=== PATIENT | female | born 1960 | race African-American/Black ===

== ENCOUNTER → 2017-05-14 | Outpatient (CLI) | payer OTHER | LOC: RAD 10:17 | DX: M19.012 Primary osteoarthritis, left shoulder (principal); M47.892 Other spondylosis, cervical region; M43.6 Torticollis ==

== ENCOUNTER → 2017-05-26 | Outpatient (CLI) | payer OTHER | END | disposition home or self-care (01) | LOC: MRI 08:09 | DX: M25.512 Pain in left shoulder (principal) ==

== ENCOUNTER → 2017-10-16 | Outpatient (CLI) | payer OTHER ==
[~2017-10-16] MED LIST: ASPIR 8181 MG PO; CLONAZEPAM 0.50.5 M1 PO; CLONAZEPAM 1 MG1 M1 PO; GABAPENTIN 100100 MG PO; KLOR-CON 1010 MEQ PO; LISINOPRIL5 MG PO; METHADONE HCL5 MG PO; NAPROSYN500 MG PO; OMEPRAZOLE40 MG PO
== END ==
LOC: RAD 10-14 05:56
DX: Z12.31 Encounter for screening mammogram for malignant neoplasm of breast (principal)

== ENCOUNTER 2017-10-31 05:27 | Inpatient (IN) | payer OTHER ==
[2017-10-22 13:07] LABS: HEMATOCRIT 41.2 % (37.0-47.0); HEMOGLOBIN 13.3 gm/dL (12.0-15.0); MCH 28.2 pg (26.0-34.0); MCHC 32.2 g/dL (28.0-37.0); MCV 87.3 fL (80.0-100.0); RBC 4.72 mil/uL (4.20-5.00); RDW 13.2 % (10.5-14.5); WBC 5.2 thou/uL (4.0-11.0)
[2017-10-22 13:16] LABS: CALCIUM 9.2 mg/dL (8.5-10.1); CREATININE 0.8 mg/dL (0.6-1.0); POTASSIUM 4.4 mmol/L (3.5-5.1); URINE BILIRUBIN NEGATIVE (Negative); URINE BLOOD NEGATIVE (Negative); URINE CLARITY CLEAR; URINE COLOR YELLOW; URINE GLUCOSE-RANDOM* NEGATIVE (Negative); URINE KETONES NEGATIVE (Negative); URINE LEUKOCYTES-REFLEX NEGATIVE (Negative); URINE NITRITE-REFLEX NEGATIVE (Negative); URINE PROTEIN (DIPSTICK) NEGATIVE (Negative); URINE UROBILINOGEN 0.2 E.U./dl (0.2-1.0)
[2017-10-22 13:23] LABS: INR 1.1; PROTIME 10.8 Seconds (9.3-11.4)
[2017-10-31] VITALS (7 sets, daily range): BP systolic 98–136; BP diastolic 64–95
[~2017-10-31] VITALS: Ht 154.9 cm; Wt 77.6 kg
--- NOTE | ~2017-10-31 | O ---
[facility] [place] [address] [place] [address] OPERATIVE REPORT Name: SOILA RODRIGUEZ Room #: 409-P [facility] IN M.R.#: [id number] Admission: 10/31/17 Attend Phys: Darrel Caicedo Discharge: 11/01/17 Date of : 56 Report #: [id number] THIS REPORT FOR: //name// CC: Darrel Llamas DATE OF SERVICE: 10/31/2017 PREOPERATIVE DIAGNOSES: Left shoulder pain, osteoarthritis, biceps tendinopathy, possible rotator cuff tear. POSTOPERATIVE DIAGNOSES: Left shoulder osteoarthritis, biceps tendinopathy and partial thickness tear, intact rotator cuff. PROCEDURES PERFORMED: Left total shoulder arthroplasty with open biceps tenodesis. SURGEON: Darrel Colunga M.D. SCHEME TECHNICIAN: Ethel Huertas PA-C. ANESTHESIA: General with preoperative indwelling interscalene block catheter. FLUIDS: 750 mL crystalloids. ESTIMATED BLOOD LOSS: 50 mL. COMPLICATIONS: None. DESCRIPTION OF PROCEDURE: After proper identification of the patient and the operative site in the preoperative holding area, the operative site was signed by myself. Prophylactic antibiotics were given. The patient elected to receive an indwelling interscalene block catheter after reviewing the risks, benefits, alternatives and potential complications with anesthesia. After a satisfactory block, the patient was brought back to the operative suite. After induction of the satisfactory general anesthesia, the patient was positioned in the beach chair position with head of bed elevated to approximately 40 degrees. Anterior deltopectoral approach was planned. A Tenet spider limb positioning system was utilized throughout the entire procedure. Final skin draping was with Ioban. Anterior deltopectoral approach was created. Deltopectoral interval was identified with the cephalic vein retracted laterally. Subdeltoid adhesions were carefully released. Significant biceps tenosynovitis was noted. Partial thickness tearing of the long head of the biceps tendon was appreciated. It was released out of the groove and tenodesed to the undersurface of the pectoralis major tendon using #2 FiberWire. The remaining free end of the stump was utilized to open the remaining bicipital groove and the rotator interval. [facility] [address] [place] [address] OPERATIVE REPORT Name: SOILA RODRIGUEZ Room #: 409-P DIS IN M.R.#: [id number] Admission: 10/31/17 Attend Phys: Darrel Caicedo Discharge: 11/01/17 Date of : 56 Report #: [id number] Anterior circumflex vessels were identified, ligated and cauterized. A lesser tuberosity osteotomy was then performed and the inferior capsule was released off the humeral head. At this point, peripheral osteophytes around the humerus were then carefully removed and a humeral head osteotomy using a cutting guide at approximately 135 degrees was planned. The anterior rotator cuff was intact and there was no significant evidence of any cuff tearing on the bursal or articular surface. Humeral head osteotomy was performed. This measured 44 mm x 18 mm thick on the back table. Any remaining peripheral osteophytes were removed. Canal was prepared with hand reaming up to a size 8 stem, which matched the preoperative templating. Broach was utilized. The head was cut in approximately 25-30 degrees of retroversion, which matched the patient's nightmute version. Protection plate was applied. The shoulder was then again reduced and the anterior capsule was released off the subscapularis and an anterior Bankart retractor was placed. Remaining capsule, labrum and biceps tendon stump were carefully removed in their entirety. There was complete loss of articular surface on the glenoid. No significant wear was noted. A 44 mm glenoid was chosen. This appeared slightly larger than it was noted preoperatively on the templating. Guide pin was centralized, positioned satisfactorily. Face of the glenoid was then reamed. Any peripheral soft tissue was carefully removed and central drill peg was created. Bone graft was saved for this for the pinned portion of the prosthesis. Next, the multi-pin guide was carefully inserted. Peripheral pegs were then drilled. Derotation pegs were utilized. This area was irrigated. Trial implant was placed. It was satisfactorily positioned and was stable and fully seated. This was removed. This area was thoroughly irrigated with normal saline. FloSeal was utilized while a bag of cement was prepared on the back table and the 44 mm standard DePuy glenoid was prepared. The FloSeal was irrigated out. All holes were contained. Peripheral pegs were injected with a teres syringe with cement and the bone-grafted glenoid implant was carefully impacted into position and held firmly in place until the cement had fully cured. It was fully seated and stable. Next, this was protected with a plastic dura and a 44 x 18 humeral head with a size 8 stem was trialed. This provided excellent recreation of the humeral anatomy proximally. Approximately 50% translation was noted posteriorly when it was reduced. Trial implants were removed. The Global Unite brosteotome was utilized. Anterior drill holes were placed within the bicipital groove and anterior humeral cortex. Four #2 FiberWires were passed. A size 8 Global Unite stem with 135-degree proximal body was assembled, tightened and impacted into position. A 44 x 18 eccentric head was then carefully impacted into position and appropriate eccentricity was marked. The shoulder was reduced. Subscapularis was repaired with modified Mario-Lyle technique with four #2 FiberWires. Then the lateral portion of the rotator interval was closed with #2 FiberWire. This area was irrigated with normal saline. One gram of vancomycin powder was utilized, half of it deep and half of it subcutaneous. Deltopectoral [facility] [address] [place] [address] OPERATIVE REPORT Name: SOILA RODRIGUEZ Room #: 409-P DIS IN M.R.#: [id number] Admission: 10/31/17 Attend Phys: Darrel Caicedo Discharge: 11/01/17 Date of : 56 Report #: [id number] interval was closed with #1 Vicryl, 2-0 Vicryl for the subcutaneous tissues and final skin closure was with a running 4-0 Monocryl. Dermabond was applied. Sterile dressing was applied. The patient was placed in a sling and abduction pillow for 4 weeks postoperatively. Qualified occupational therapist assistants was utilized throughout the entire procedure to aid in patient limb positioning, visualization and retraction of the soft tissues, instrument passage, closure and sling application. <ELECTRONICALLY SIGNED> By: Darrel Colunga MD 11/05/17 0742 1012 1052 Darrel Colunga MD /nt
--- NOTE | ~2017-10-31 | H ---
[facility] [place] [address] [place] [address] HISTORY AND PHYSICAL Name: SOILA RODRIGUEZ Room #: 409-P [facility] IN M.R.#: [id number] Admission: 10/31/17 Attend Phys: Darrel Caicedo Discharge: 11/01/17 Date of : 56 Report #: [id number] THIS REPORT FOR: //name// CC: Darrel Galeanaa Llmaas DATE OF SERVICE: 10/31/2017 CHIEF COMPLAINT: Left shoulder pain. HISTORY OF PRESENT ILLNESS: The patient was last seen in our office on 08/28/2017 complaining of left shoulder pain that initially began 10 years ago when she fell out of a window. The patient localizes the pain to the anterior lateral and superior shoulder that occasionally radiates up into the neck and into the posterior shoulder. She has had a previous injection of cortisone with no relief. MEDICATIONS: Please see medical record for current but home medications include Naprosyn, Metazol, enalapril, potassium citrate extended release tablets, lisinopril tablet, methadone Hcl tablet. ALLERGIES: No known drug allergies. PAST MEDICAL HISTORY: Significant for arthritis, hypertension, flu vaccination 12-24 months ago. PAST SURGICAL HISTORY: Significant for cholecystectomy, hip fracture surgery, low back surgery. REVIEW OF SYSTEMS: GENERAL: The patient denies any significant weight loss, fevers, malaise. EYES: The patient reports vision loss in both eyes. ENT: Positive for difficulty swallowing. CARDIOVASCULAR: Positive for racing/skipping heartbeats. RESPIRATORY: The patient denies any shortness of air, difficulty breathing, chest pain. GASTROINTESTINAL: Positive for constipation. GENITOURINARY: Negative for any changes in bladder habits, frequency, nocturia. MUSCULOSKELETAL: Positive for joint swelling, pain, back pain, arthritis, muscle weakness, muscle aches, loss of strength. FAMILY HISTORY: The patient denies any pertinent past family history. SOCIAL HISTORY: The patient lives with her significant other. She is right-handed and ambulates without assistance. Tobacco use: The patient denies any smoking, the patient is on chronic methadone use and does report past [facility] [address] [place] [address] HISTORY AND PHYSICAL Name: SOILA RODRIGUEZ Room #: 409-P [facility] IN M.R.#: [id number] Admission: 10/31/17 Attend Phys: Darrel PughFreddy Caicedo Discharge: 11/01/17 Date of : 56 Report #: [id number] history of IV drug use. PHYSICAL EXAMINATION: VITAL SIGNS: Height 61 inches, weight 160 pounds, BMI 30. GENERAL: The patient is a well-developed, well-nourished female in no acute distress. HEENT: Pupils are equal, round and reactive to light. Extraocular movements grossly intact. NECK: Supple, without lymphadenopathy, no bruit. CHEST: Clear to auscultation bilaterally. HEART: Regular rate and rhythm without murmur. ABDOMEN: Soft and nontender. SKIN: Nontender, dry and intact. EXTREMITIES: Neurovascularly intact. Active flexion is measured to 80 degrees, passive to 90 degrees, passive external rotation 15 degrees, passive internal rotation to the iliac crest. Tenderness to palpation of the AC joint, anterolateral shoulder, posterior shoulder, rhomboids and upper trapezius. No tenderness to palpation of the sternoclavicular joint, clavicle or acromion. The patient complains of pain with cross chest adduction, positive Neer's test, positive Walton test. Strength test of the rotator cuff: Supraspinatus 4+/5, external rotation 4+/5, internal rotation 5-/5, deltoid 5-/5. Pain with strength testing is noted. X-rays performed in the office include 3 views of the left shoulder that show a type 2 acromion with no degenerative changes noted at the AC joint. The glenohumeral joint shows near complete loss of glenohumeral joint space with osteophyte formation noted. Glenohumeral joint remained well reduced. IMAGING STUDIES: MRI of the left shoulder performed at [facility] reveals advanced glenohumeral arthritis and moderate rotator cuff damage with full thickness tearing of the supraspinatus. ASSESSMENT: Left shoulder pain, osteoarthritis, small rotator cuff tear of the supraspinatus. PLAN: We reviewed continued nonoperative versus operative treatment options. We discussed performing a left total shoulder arthroscopy with biceps tenodesis versus reverse total shoulder arthroplasty depending on the integrity of the rotator cuff. The risk, benefits, alternatives to treatment were reviewed. This short-term hospitalization was reviewed. We have discussed anticoagulation, DVT prophylaxis pre and postoperatively. We discussed the potential for time in a sling, the need for physical therapy. Preoperatively, the patient will use benzoyl peroxide soap for 7 days preop. Pain management was discussed and pain medications will be given on the day of surgery. The anesthesiologist will discuss the utilization of a nerve block. She may elect to have this performed postoperative pain. I presented the [facility] [address] [place] [address] HISTORY AND PHYSICAL Name: SOILA RODRIGUEZ Room #: 409-P DIS IN M.R.#: [id number] Admission: 10/31/17 Attend Phys: Darrel Caicedo Discharge: 11/01/17 Date of : 56 Report #: [id number] Academy of Orthopedic surgeon's website for further information and videos pertaining to the above mentioned procedure can be reviewed. Arthroplasty handout was also provided to the patient. We demonstrated the surgery using the shoulder model. We discussed the need for prophylactic antibiotic treatment for invasive dental procedures postoperatively as well as the need for serial radiographic monitoring every 1-2 years postoperatively. The patient has been cleared for surgery and we will plan on proceeding with above mentioned procedure. Questions were encouraged, all were answered. <ELECTRONICALLY SIGNED> By: TYLER Mathews 11/05/17 1108 1027 1118 TYLER Mathews /nt
--- NOTE | ~2017-10-31 | EKG ---
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 : 1960 Requested By: Darrel Colunga Order Number: [id number] MD: Trevon Reyes Measurements Intervals [place] Rate: 88 P: 28 MN: 145 QRS: -7 QRSD: 66 T: 188 QT: 326 QTc: 395 Interpretive Statements Sinus rhythm LVH with secondary repolarization abnormality Compared to ECG 10/29/2005 01:47:23 Left ventricular hypertrophy now present Early repolarization now present Electronically Signed On 10-22-2017 16:20:06 SCREW MACHINE HAND by Trevon Reyes [email or web address] <ELECTRONICALLY SIGNED> By: Trevon Reyes MD 10/22/17 1620 1301 130 Trevon Reyes MD /THERESA
[2017-11-01] VITALS: BP 120/80
[2017-11-01 04:12] VITALS: BP 116/76
[2017-11-01 04:41] LABS: HEMATOCRIT 29.7 % (37.0-47.0); HEMOGLOBIN 9.8 gm/dL (12.0-15.0)
[2017-11-01 07:28] VITALS: BP 152/89
[2017-11-01 12:23] VITALS: BP 152/89
== END 2017-11-01 15:00 | disposition home or self-care (01) | DRG 483 ==
LOC: TBA 05:27 → 4N 05:27 → PRE 05:30 → 4N 13:38
PROVIDERS: Orthopaedic Surgery Sports Medicine; Physician Assistant Surgical
PROC: 0RRK0JZ Replacement of Left Shoulder Joint with Synthetic Substitute, Open Approach (ICD-10-PCS; principal; 2017-10-31)
PROC: 0LS40ZZ Reposition Left Upper Arm Tendon, Open Approach (ICD-10-PCS; principal; 2017-10-31)
DX: M19.012 Primary osteoarthritis, left shoulder (principal); M75.22 Bicipital tendinitis, left shoulder; I10 Essential (primary) hypertension; Z90.49 Acquired absence of other specified parts of digestive tract; M75.102 Unspecified rotator cuff tear or rupture of left shoulder, not specified as traumatic; Z79.899 Other long term (current) drug therapy
CPT/HCPCS: 10790; 50010; 50101; 50172; 50386; 50404; 50697; 50733; 50935; 51751; 51771; 52138; 53000; 53078; 54118; 55435; 56521; 56524; 56525; 56526; 56530; 57095; 62110; 62900; 64041; 64043; 70005

== ENCOUNTER → 2018-12-08 | Outpatient (CLI) | payer OTHER | LOC: RAD 01:59 | DX: Z12.31 Encounter for screening mammogram for malignant neoplasm of breast (principal) ==

== ENCOUNTER → 2019-12-08 | Outpatient (CLI) | payer OTHER | LOC: RAD 13:21 | DX: Z12.31 Encounter for screening mammogram for malignant neoplasm of breast (principal) ==

== ENCOUNTER → 2020-03-20 | Outpatient (CLI) | payer OTHER | LOC: RAD 11:33 | DX: M51.37 Other intervertebral disc degeneration, lumbosacral region (principal); M48.07 Spinal stenosis, lumbosacral region; M25.78 Osteophyte, vertebrae; M54.40 Lumbago with sciatica, unspecified side; G89.29 Other chronic pain ==

== ENCOUNTER 2020-04-04 07:18 | Emergency (ER) | payer OTHER ==
[~2020-04-04] VITALS: Ht 154.9 cm; Wt 66.2 kg
[2020-04-04 08:39] LABS: ANION GAP 4 mmol/L (7-16); BUN 18 mg/dL (7-18); CALCIUM 8.8 mg/dL (8.5-10.1); CHLORIDE 105 mmol/L (98-107); CO2 28 mmol/L (21-32); CREATININE 0.8 mg/dL (0.6-1.0); GLUCOSE 79 mg/dL (74-106); POTASSIUM 4.1 mmol/L (3.5-5.1); SODIUM 137 mmol/L (136-145)
[2020-04-04 08:49] LABS: ALBUMIN 3.2 g/dL (3.4-5.0); LIPASE 171 U/L (73-393); SGOT 45 U/L (15-37); SGPT 85 U/L (30-65); TOTAL BILIRUBIN 0.4 mg/dL (0.2-1.0); TOTAL PROTEIN 6.7 g/dL (6.4-8.2); TROPONIN-I <0.06 ng/mL (<0.06)
--- NOTE | 2020-04-04 08:50 | EKG ---
[facility] [place] [address] [place] [address] ELECTROCARDIOGRAM REPORT Name: SOILA RODRIGUEZ Room #: [facility].#: [id number] Admission: 04/04/20 Attend Phys: Discharge: Date of : 56 Report #: [id number] THIS REPORT FOR: cc: Thuy Llamas MD, Nora P. MD Lundgren, Craig H. 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[facility] : 1960 Requested By: Eduardo Huff Order Number: [id number] MD: Linden Garcia Measurements Intervals [place] Rate: 55 P: 65 UT: 171 QRS: 8 QRSD: 90 T: 37 QT: 434 QTc: 416 Interpretive Statements Sinus rhythm Nonspecific ST segment abnormality Compared to ECG 10/22/2017 13:01:41 ST segment abnormality is less pronounced Electronically Signed On 04-04-2020 8:49:09 CDT by Linden Garcia [email or web address] <ELECTRONICALLY SIGNED> By: Linden Garcia MD, [facility] 04/04/20 0849 [id number] 0757 Linden Garcia MD, [facility] /EPI
[2020-04-04] MEDS ORDERED: KLONOPIN0.5 MG PO (09:40)
[2020-04-04 10:00] LABS: HEMATOCRIT 36.9 % (37.0-47.0); HEMOGLOBIN 12.1 gm/dL (12.0-15.0); MCH 28.8 pg (26.0-34.0); MCHC 32.8 g/dL (28.0-37.0); MCV 87.8 fL (80.0-100.0); PLATELET COUNT 192 thou/uL (150-400); RDW 13.1 % (10.5-14.5); WBC 5.1 thou/uL (4.0-11.0)
[2020-04-04 10:12] LABS: URINE BILIRUBIN NEGATIVE (Negative); URINE BLOOD NEGATIVE (Negative); URINE CLARITY CLEAR; URINE COLOR YELLOW; URINE GLUCOSE-RANDOM* NEGATIVE (Negative); URINE KETONES NEGATIVE (Negative); URINE LEUKOCYTES-REFLEX NEGATIVE (Negative); URINE NITRITE-REFLEX NEGATIVE (Negative); URINE PROTEIN (DIPSTICK) NEGATIVE (Negative); URINE SPECIFIC GRAVITY >= 1.030 (1.005-1.035); URINE UROBILINOGEN 0.2 E.U./dl (0.2-1.0)
[2020-04-04 10:39] LABS: ANISOCYTOSIS 1+; ATYPICAL LYMPHS 2 %; MYELOCYTES 1 %; OVALOCYTES FEW
[2020-04-04 11:44] VITALS: BP 132/73
== END 2020-04-04 11:44 | disposition home or self-care (01) ==
LOC: ER 07:18
PROVIDERS: Emergency Medicine
DX: G89.29 Other chronic pain (principal); R10.12 Left upper quadrant pain; R10.32 Left lower quadrant pain; R11.0 Nausea; I10 Essential (primary) hypertension; K21.9 Gastro-esophageal reflux disease without esophagitis; Z79.899 Other long term (current) drug therapy; Z90.49 Acquired absence of other specified parts of digestive tract

== ENCOUNTER → 2020-04-13 | Outpatient (CLI) | payer OTHER ==
[~2020-04-13] MED LIST changes: +KLONOPIN0.5 MG PO
== END ==
LOC: MRI 12:30
PROVIDERS: ATTEND Family Medicine
DX: M47.817 Spondylosis without myelopathy or radiculopathy, lumbosacral region (principal); M43.17 Spondylolisthesis, lumbosacral region; M48.07 Spinal stenosis, lumbosacral region; M54.40 Lumbago with sciatica, unspecified side

== ENCOUNTER → 2020-04-25 | Outpatient (CLI) | payer OTHER ==
[~2020-04-25] VITALS: Ht 154.9 cm; Wt 63.5 kg
[~2020-04-25] MED LIST changes: +FLONASE 0.05%50 MCG NASAL
[2020-04-25 13:32] VITALS: BP 116/81
--- NOTE | 2020-04-25 13:50 | NUR ---
Pain Clinic Assessment: 1. History of Osteoarthritis: BACK History of Rheumatoid Arthritis: Not Applicable 2. Height: 5 ft. 1 in. 154.9 cm. Weight: 140.0 lb. oz. 63.504 kg. Patient's BMI: 26.5 3. Vital Signs: BP: 116/81 Pulse: 88 Resp: 16 Temp: 02 Sat: 100 ECG Mon: 4. Pain Intensity: 9 5. Fall Risk: Dizziness: N Needs help standing or walking: Y Fallen in the last 3 months: N Fall risk comments: 6. Patient on Blood Thinner: None 7. History of Hypertension: Y 8. Opioid Therapy greater than 6 weeks: N Opiate Contract Signed: 9. Risk Assessment Tool Provided: MODERATE RISK 03/26 10. Functional Assessment Tool: / 11. Recreational Drug Use: Past greater than 3 mos Drug Type: PRESCRIPTION DRUGS Tobacco Use: Never Smoker Tobacco Type: Amount or Packs/day: How Many Years: Alcohol Use: No Frequency: Quant:
--- NOTE | 2020-05-02 14:07 | HPC ---
[facility] [place] [address] [place] [address] PAIN MANAGEMENT CONSULTATION Name: SOILA RODRIGUEZ Room #: REG [facility] M..#: [id number] Admission: 04/25/20 Attend Phys: Elton Lane DO Discharge: Date of : 56 Report #: [id number] THIS REPORT FOR: cc: Thuy Llamas MD, Nora P. MD Johnson, James E. DO ~ DATE OF SERVICE: 04/25/2020 REFERRING PHYSICIAN: Elton Fraire DO CHIEF COMPLAINT: Low back pain, left lower extremity pain with paresthesias. HISTORY OF PRESENT ILLNESS: As you know, the patient is a very unfortunate 60-year-old female with longstanding history of low back pain, left lower extremity pain with paresthesias. The patient indicates that she has had an acute exacerbation of symptoms that appeared spontaneously on 01/07/2020. She indicates that this is the pain that she has had in the past. In fact, she reports that she was once treated at [facility] for over 3-4 years ago for similar findings. She underwent injections at that time, which reportedly provided no benefit. She was started on medication management, but did not follow up with their pain service. She sought evaluation through her primary care physician, Dr. Fraire after this acute exacerbation of symptoms that occurred on 01/07/2020. The patient denies injury or trauma that may have led to the development of symptoms. She was seen in consultation and was sent for imaging of the lumbar spine for further evaluation. MRI findings dated 04/13/2020 were such, the patient was referred to our clinic to discuss injection therapies. The patient indicates today her pain is continuous. She describes the pain as aching and throbbing. She places current pain score 9/10, daily average at 9/10, the worst pain has been is 10/10. The patient states that walking or any activity exacerbates symptoms. Elevating legs and pain pills tend to improve pain. She has been referred to our service to discuss interventional treatment options. PAST MEDICAL HISTORY: 1. Osteoarthritis. 2. Bilateral blindness. 3. Hypertension. PAST SURGICAL HISTORY: Back surgery in 1997, cholecystectomy in 1999, hip repair in 2001. SOCIAL HISTORY: The patient reports herself as a nonsmoker. Denies IV or illicit drug use. Denies any chronic alcohol use. She is not working, has not [address] [address] PAIN MANAGEMENT CONSULTATION Name: SOILA RODRIGUEZ Room #: REG [facility] Nicholson#: [id number] Admission: 04/25/20 Attend Phys: Elton Lane DO Discharge: Date of : 56 Report #: [id number] worked in an extended period of time. She is not receiving workmen's compensation nor is she trying to obtain disability benefits. She is not in litigation in regards to her pain. She is unaccompanied at today's visit. REVIEW OF SYSTEMS: Positive for eye disease, shortness of breath walking or lying flat, frequent and recurrent coughs, spitting up blood, asthma and wheezing, low back pain, left lower extremity pain with paresthesias. All other review of systems negative per 12-point review of systems other than those listed in history of present illness. Pain impact score 53 of 70 indicating severe interference of daily activities secondary to pain. ALLERGIES: No known drug allergies. CURRENT MEDICATIONS: Fluticasone 1 spray each nostril per day, potassium chloride 10 mEq p.o. every day, lisinopril 5 mg per day, aspirin 81 mg per day, omeprazole 40 mg per day, methadone 5 mg every 6 hours. IMAGING: MRI lumbar spine obtained on 04/13/2020 shows L1-L2 unremarkable. L2-L3 shows mild disk bulge and facet arthrosis, mild central canal stenosis and mild left neural foraminal stenosis. No right foraminal stenosis. L3-L4 shows marked disk space narrowing with slight disk bulge combining with, bilateral ligamentum flavum hypertrophy causing mild central canal stenosis and mild neural foraminal stenosis. At L4-L5 disk narrowing broad-based disk bulge. This combines with ligamentum flavum hypertrophy causes moderate central canal stenosis, bilateral lateral recess stenosis and right neural foraminal stenosis. L5-S1, marked disk space narrowing bilateral facet arthrosis, slight degenerative anterolisthesis of L5 and S1. No central canal stenosis, only mild foraminal stenosis. PQRS: The patient has known mild arthritic changes of the lumbar spine. No rheumatoid arthritis. She is placing pain intensity at 9/10. She is a fall risk, but has not had a fall in last 3 months. She is utilizing ambulatory devices for balance. She is not on blood thinners, but is treated for hypertension. She is not on chronic opioids and has severe risk of opioid addiction based on our assessment tool. Pain impact is 56/70, severe interference of daily activities secondary to pain. PHYSICAL EXAMINATION: VITAL SIGNS: Blood pressure 116/81, pulse 88, respiratory rate 16 and unlabored. The patient is 100% on room air. Height 5 feet 1 inch tall, weight 140 pounds, BMI calculated 26.5. GENERAL: Well-developed, well-nourished, well-hydrated 60-year-old female, appears older than her stated age. She is awake, alert and oriented x 3. Pain is rated today at 9/10. [facility] [place] [address] PAIN MANAGEMENT CONSULTATION Name: SOILA RODRIGUEZ Room #: REG Deborah MKelsy.#: [id number] Admission: 04/25/20 Attend Phys: Elton Lane DO Discharge: Date of : 56 Report #: [id number] HEENT: Normocephalic, atraumatic. The patient has near complete blindness. Extraocular muscles appear intact. Neck has full range of motion. No lymphadenopathy. RESPIRATORY: Clear to auscultation. No wheeze, rhonchi or rales. CARDIOVASCULAR: Regular. No appreciable gallop or rub. ABDOMEN: Soft, nontender with normoactive bowel sounds. EXTREMITIES: Show no clubbing, no cyanosis, and no edema. MUSCULOSKELETAL: The patient has tenderness to palpation over the paraspinal musculature of lower lumbar spine, right greater than left. Lumbar provocation testing is met with slight increase in pain mainly over the facet joints of the lumbar spine. This is noted with forward flexion and extension, not noted with rotation or lateral flexion. Seated straight leg raising negative. Supine straight leg raising negative. Rosalina's test is negative. Modified Gaenslen's positive for axial low back pain. Ankle clonus negative. Babinski is negative. Gait is antalgic, but according to the patient, it is normal for her: ASSESSMENT: 1. Chronic low back pain. 2. Failed lumbar spine surgery. 3. Possible lumbar radiculopathy. 4. Central canal stenosis of the lumbar spine. 5. Neural foraminal stenosis of the lumbar spine. 6. Facet arthropathy of the lumbar spine. 7. Chronic intractable pain. PLAN: 1. Based on today's physical exam and history the patient has provided, the description the patient uses in regards to pain, the likely source of symptoms appears to be the central canal stenosis noted on imaging. There is also a contribution of neural foraminal stenosis. We discussed how the MRI findings correlate to her current pain distribution. After this discussion of imaging and correlation to physical exam, we discussed the treatment options we have available. Following was discussed with the patient today. We discussed physical therapy, stretching exercises and core strengthening as a way to treat ongoing symptoms and to maintain lower extremity strength. We recommend this highly. We discussed suggestions of pain medications for pain control. These would include Neurontin, Lyrica, Cymbalta, nortriptyline and amitriptyline, given the findings on exam and the history that she has of opioid misuse and prescription drug addiction, we would not recommend any opioid medications in this patient's case. We discussed epidural injections for which the patient was referred to our service. We also discussed surgical options with the patient that may be necessary. After reviewing risks and benefits of all proposed treatment options, the patient chose to undergo lumbar epidural injection under fluoroscopic guidance. 2. The patient was advised of the risks and benefits of a lumbar epidural [address] [address] PAIN MANAGEMENT CONSULTATION Name: SOILA RODRIGUEZ Room #: REG TOSHA Nicholson#: [id number] Admission: 04/25/20 Attend Phys: Elton Lane DO Discharge: Date of : 56 Report #: [id number] injection. These risks include but are not necessarily limited to bleeding, bruising, infection, worsening pain, no relief of pain, also risk of temporary or permanent muscle weakness, temporary or permanent nerve damage, possible paralysis and . The patient states understood and wished to proceed. 3. No medication changes made at today's visit. The patient did request multiple times during our evaluation today for opioid pain medications. We have advised the patient given our assessment tool showing a severely high opioid addiction potential and the fact that she is currently on methadone for opioid addiction, she would not be a candidate to initiate medication management with our services. She will have to seek alternative treatment options to address ongoing pain as she is not a candidate for opioid medications or substances that can cause dysphoric effects. 4. We will see the patient back in followup visit on an as needed basis for possible next in the series of epidural injections. We are hopeful the patient will see good and prolonged benefit with today's procedure. 5. We wish to thank the referring physician, which appears to be Dr. Thuy Llamas though the patient reports that her primary care physician is Dr. Fraire for the opportunity to see the patient in consultation. We will keep you apprised of response to treatment as we address lumbar radiculopathy secondary to central canal and neural foraminal stenosis. Again, we wish to thank you for the opportunity to see the patient in consultation. PROCEDURE NOTE DESCRIPTION OF PROCEDURE: L4-L5 interlaminar epidural steroid injection under fluoroscopic guidance. This is the first procedure of the first series that the patient is undergoing. After obtaining written consent, the patient was taken back to the fluoroscopy suite, placed in a prone position with pillow under the abdomen to decrease lumbar lordosis. The skin overlying the lumbosacral area was then prepped and draped in aseptic fashion. The L4-L5 vertebral interspace was then identified by AP fluoroscopy. The skin and subcutaneous tissue overlying the target site of injection was anesthetized with 3 mL 1% lidocaine. A 20-gauge 3.5-inch Tuohy needle was then advanced under fluoroscopic guidance towards the epidural space using a left paramedian approach. The epidural space was identified using loss of resistance to air technique. After negative aspiration for heme or cerebrospinal fluid, a total of 1 mL of Omnipaque was injected. A lumbar epidurogram was confirmed using both AP and lateral fluoroscopy. After negative aspiration for heme or cerebrospinal fluid, 5 mL of a solution containing 2 mL 40 mg/mL, 80 mg total triamcinolone along with 3 mL of lidocaine 1% was injected in increments. Contrast spread was noted posterior epidural space. The needle was then retracted approximately half way and needle tract flushed with 1 mL of 1% lidocaine. Needle was then removed. There were [facility] [address] [place] [address] PAIN MANAGEMENT CONSULTATION Name: JENNIFERSOILA Room #: REG [facility] M.R.#: [id number] Admission: 04/25/20 Attend Phys: Elton Lane DO Discharge: Date of : 56 Report #: [id number] no apparent sensory or motor deficits in the lower extremity following the procedure. A sterile bandage was placed over the injection site. The heart rate, pulse, oximetry and blood pressure were continuously monitored after the procedure. There were no apparent complications. The patient tolerated the procedure well and was carefully escorted to the recovery room in stable condition. There were no apparent complications. After meeting discharge criteria, the patient was then discharged home. <ELECTRONICALLY SIGNED> By: Elton Lane DO 05/02/[address] DO /nt
== END ==
LOC: PAIN 06:57
PROVIDERS: ATTEND Anesthesiology Pain Medicine
DX: M54.5 Low back pain (principal); M48.061 Spinal stenosis, lumbar region without neurogenic claudication; G89.29 Other chronic pain; M19.90 Unspecified osteoarthritis, unspecified site; I10 Essential (primary) hypertension; Z79.899 Other long term (current) drug therapy; Z98.890 Other specified postprocedural states

== ENCOUNTER → 2020-05-25 | Outpatient (CLI) | payer OTHER | LOC: LAB 11:41 | PROVIDERS: ATTEND Student in an Organized Health Care Education/Training Program | DX: Z01.812 Encounter for preprocedural laboratory examination (principal); Z11.59 Encounter for screening for other viral diseases ==

== ENCOUNTER → 2020-05-29 | Outpatient (CLI) | payer OTHER | END | disposition home or self-care (01) | LOC: GI 06:47 | PROVIDERS: ATTEND Internal Medicine Gastroenterology | DX: Z12.11 Encounter for screening for malignant neoplasm of colon (principal); K64.8 Other hemorrhoids; Z86.010 Personal history of colon polyps; Z79.899 Other long term (current) drug therapy; Z88.8 Allergy status to other drugs, medicaments and biological substances; Z98.890 Other specified postprocedural states | CPT/HCPCS: 62110; 62900 ==

== ENCOUNTER → 2020-06-16 | Outpatient (CLI) | payer OTHER | LOC: RAD 07:58 | DX: M51.37 Other intervertebral disc degeneration, lumbosacral region (principal); M48.07 Spinal stenosis, lumbosacral region; M47.816 Spondylosis without myelopathy or radiculopathy, lumbar region; M43.17 Spondylolisthesis, lumbosacral region ==

== ENCOUNTER 2020-06-30 16:18 | Inpatient (IN) | payer OTHER ==
[~2020-06-30] VITALS: Ht 154.9 cm; Wt 66.7 kg
[2020-06-30 13:52] LABS: ABSOLUTE NEUTROPHILS 1.6 thou/uL (1.4-8.2); BASOPHILS 0.6 % (0.0-2.0); EOSINOPHILS 3.9 % (0.0-3.0); HEMATOCRIT 37.9 % (37.0-47.0); HEMOGLOBIN 12.2 gm/dL (12.0-15.0); LYMPHOCYTES 53.9 % (24.0-44.0); MCH 29.1 pg (26.0-34.0); MCHC 32.2 g/dL (28.0-37.0); MCV 90.5 fL (80.0-100.0); MONOCYTES 10.2 % (1.0-8.0); PLATELET COUNT 211 thou/uL (150-400); POLYS 31.4 % (36.0-66.0); RBC 4.18 mil/uL (4.20-5.00); RDW 14.6 % (10.5-14.5); WBC 5.2 thou/uL (4.0-11.0)
[2020-06-30 14:01] LABS: URINE BILIRUBIN NEGATIVE (Negative); URINE BLOOD NEGATIVE (Negative); URINE CLARITY CLEAR; URINE COLOR YELLOW; URINE GLUCOSE-RANDOM* NEGATIVE (Negative); URINE KETONES NEGATIVE (Negative); URINE LEUKOCYTES-REFLEX NEGATIVE (Negative); URINE NITRITE-REFLEX NEGATIVE (Negative); URINE PROTEIN (DIPSTICK) NEGATIVE (Negative); URINE SPECIFIC GRAVITY >= 1.030 (1.005-1.035); URINE UROBILINOGEN 0.2 E.U./dl (0.2-1.0)
[2020-06-30 14:06] LABS: ALBUMIN 3.2 g/dL (3.4-5.0); CALCIUM 8.6 mg/dL (8.5-10.1); CREATININE 0.8 mg/dL (0.6-1.0); MAGNESIUM 2.1 mg/dL (1.8-2.4); POTASSIUM 4.7 mmol/L (3.5-5.1); TOTAL BILIRUBIN 0.2 mg/dL (0.2-1.0); TOTAL PROTEIN 6.9 g/dL (6.4-8.2)
[2020-06-30 14:07] LABS: APTT 28.2 Seconds (24.5-32.8)
[2020-07-05] VITALS (9 sets, daily range): BP systolic 138–152; BP diastolic 79–98
[2020-07-06] VITALS (7 sets, daily range): BP systolic 77–133; BP diastolic 42–87
--- NOTE | 2020-07-06 04:56 | NUR ---
ASSESSED AT START OF SHIFT. PT A&0X4 POSTOP, BLIND IN BOTH EYES. DRESSING C/D/I. IV INTACT WITH IVF AND MAINTENANCE MILLWRIGHT PUMP INFUSING. FOLLEY AND HEMOVAC INTACT. OUTPUT 200CC FROM HEMOVAC. PT ON A CAPNEA MONITOR. VALIUM GIVEN FOR ANXIETY. PT A FEEDER. FALL PREC IN PLACE AND CALL LIGHT IN REACH WILL CONT WITH POC TILL EOS.
[2020-07-06 05:50] LABS: ABSOLUTE NEUTROPHILS 4.6 thou/uL (1.4-8.2); BASOPHILS 0.4 % (0.0-2.0); EOSINOPHILS 0.1 % (0.0-3.0); HEMATOCRIT 32.8 % (37.0-47.0); HEMOGLOBIN 10.9 gm/dL (12.0-15.0); LYMPHOCYTES 26.6 % (24.0-44.0); MCH 29.6 pg (26.0-34.0); MCHC 33.2 g/dL (28.0-37.0); MCV 89.2 fL (80.0-100.0); MONOCYTES 11.4 % (1.0-8.0); PLATELET COUNT 157 thou/uL (150-400); POLYS 61.5 % (36.0-66.0); RBC 3.67 mil/uL (4.20-5.00); RDW 13.9 % (10.5-14.5); WBC 7.5 thou/uL (4.0-11.0)
[2020-07-06 06:06] LABS: CALCIUM 8.5 mg/dL (8.5-10.1); CREATININE 0.8 mg/dL (0.6-1.0); POTASSIUM 4.1 mmol/L (3.5-5.1)
--- NOTE | 2020-07-06 12:34 | NUR ---
CM COMPLETED INITIAL ASSESSMENT TO DISCUSS D/C PLANNING. PT A7OX4. PT LIVES AT HOME W/FIANCE. PT VISIBLY IMPAIRED. PT MONTRELL IS RETIRED AND PROVIDES SUPPORT NEEDED. PT STATES SHE IS INDEPENDENT W/ADLS. S/O COOKS MEALS AND PT'S STATES, "I HELP CLEAN." NOT CURRENTLY ACTIVE D/T PX. HOPES TO IMPROVE ACTIVITY LEVEL POST SURGERY. PT IS PLANNING TO D/C HOME W/[facility]. PT HAS BEEN TO SNF "OVER 20 YEARS AGO. IT'S NOT THERE ANYMORE. PT NO DESIRE TO GO TO SNF. CM TO CONT TO FOLLOW TO ASSIST NEEDED.
--- NOTE | 2020-07-06 14:56 | O ---
[facility] [address] [facility] [place] [address] OPERATIVE REPORT Name: SOILA RODRIGUEZ Room #: 438-P [facility] M.R.#: [id number] Admission: 07/05/20 Attend Phys: Denilson Chau MD Discharge: Date of : 56 Report #: [id number] THIS REPORT FOR: cc: Thuy Llamas MD,Denilson Cabral MD, MD ~ CC: Denilson Llamas DATE OF SERVICE: 07/05/2020 PREOPERATIVE DIAGNOSES: Lumbar scoliosis, spondylolisthesis and instability, coupled with multilevel lumbar spinal stenosis, foraminal stenosis, L2-S1. PROCEDURES: Posterior segmental instrumentation, L2-S1; posterior posterolateral fusion, L2-L3; posterior posterolateral fusion, L3-L4; posterior posterolateral fusion, L4-L5; posterior posterolateral fusion, L5-S1. She underwent bilateral laminectomy with partial facetectomy and neural foraminotomy, redo S1 bilateral laminectomy with partial facetectomy and neural foraminotomy, redo L5 bilateral laminectomy with partial facetectomy and neural foraminotomy, L2, bilateral laminectomy with partial facetectomy and neural foraminotomy, L3, bilateral laminectomy with partial facetectomy and neural foraminotomy, L4, autograft and synthetic bone graft for fusion posterolaterally. SURGEON: Denilson Chau MD TUB CHUCKER: Rhoda Fang-Debby, PA-C. ANESTHESIA: General via endotracheal tube. Lower extremities were treated with VICKI hose and intermittent compression stockings. DESCRIPTION OF PROCEDURE: The patient received perioperative antibiotic. She was carefully positioned on the operative table in the prone position with all bony prominences padded appropriately with care taken to ensure the shoulders were not abducted more than 90 degrees or the elbows flexed more than 90 degrees. Khan catheter had been placed and this was all with her with the understanding of the risks of the procedure to be , DVT, pulmonary embolism, paraplegia, loss of bowel or bladder function, loss of sexual function, possibility of bleeding, bleeding requiring transfusion, transfusion attendant risks of AIDS and hepatitis infection, instability, the need for revision, prolonged hospital stay, dural leak, spinal headache, infection and again she requested we proceed. The patient was brought to the operating room, administered general anesthesia via endotracheal tube. Lower extremities were treated with VICKI hose and [address] [address] OPERATIVE REPORT Name: SOILA RODRIGUEZ Room #: 438-P [facility] M.R.#: [id number] Admission: 07/05/20 Attend Phys: Denilson Chau MD Discharge: Date of : 56 Report #: [id number] intermittent compression stocking. She was positioned on the Satya table. Her skin was defatted with alcohol. She was visualized under fluoroscopy and the pedicles of L2, L3, L4, L5 and S1 were marked on the patient's back for surgical reference. We then began the exposure by incising the skin after a sterile prep and drape and carrying it down to the deep fascia. At the deep fascia, subperiosteal dissection was performed of the inferior aspect of L1. The entirety of L2, L3, L4 and then care was taken at the previous laminectomy at L5-S1, not to inadvertently penetrate the dura where it had been previously violated. We then took our dissection down to the bone and then exposed the transverse processes after our levels were proven under fluoroscopy with clamps affixed to the spinous processes, documenting our level and giving us relative pedicle directions having placed the clamps perpendicular to the floor. We then knowing the pedicle directions, we decorticated the base of the transverse process in line with the lateral facet, inserted the pedicle markers and instrumented the patient from L2 to the sacrum. With the pedicle markers in place, we then brought in fluoroscopy and ensured that the pedicle markers were ideally placed in all planes with fluoroscopic visualization. Once this was assured, the markers were removed and sequentially removed to S1. The markers were removed. We tapped the hole. We palpated the hole to ensure cortical integrity. Once that was assured, we decorticated posterolaterally and used synthetic bone to accomplish effusions in the posterolateral gutter from L2 to sacrum. With the posterolateral synthetic bone now placed, we inserted the screws and then measured, cut and contoured the rods and reduced the spondylolisthesis and the scoliosis. With the instrumentation in place, we locked it and then moved to the opposite side and performed exactly the same procedure, removed the marker, tapped the holes, decorticated, used the synthetic bone that had been placed in a Lukens trap with blood save during the pedicle hole process. We saved all the vertebral body, blood rich and stem cells. This was mixed with the synthetic bone and then packed in the posterolateral gutters from L2 to the sacrum. We then placed the screws, measured, cut and contoured the rods, locked them in place, fit a self-transverse connectors and set aside for later use. We then moved to the decompression using a heavy bowl curette to clean the interlaminar spaces of residual tissue and then a Leksell rongeur to remove that tissue and then we continued to remove the spinous processes from L2 to the sacrum. After we removed those spinous processes, we thinned the lamina with a high-speed drill of L2, L3 and L4, L5 in redo fashion and S1 in redo fashion, taking care not to inadvertently penetrate the scarred dura where it was unprotected by bone. We then started cephalad and began our central decompression and we performed the central decompression with a #3 mm Kerrison, first removing the lamina centrally of L2. Then, the intervening ligament of the lamina of L3 until we had removed the ligament and laminas of L3, L4, L5 in redo fashion and S1 in redo fashion. So, when complete, we had a central decompression L2-S1. We then started cephalad on the right and marked our way down the lateral recesses, performing partial facetectomies and ligament resection until we had a complete decompression of the lateral recess and then we perform neural foraminal [address] [address] OPERATIVE REPORT Name: SOILA RODRIGUEZ Room #: 438-P [facility] M.R.#: [id number] Admission: 07/05/20 Attend Phys: Denilson Chau MD Discharge: Date of : 56 Report #: [id number] decompressions of the L2, L3, L4, L5 and S1 nerve roots on the right. We then turned our attention to the left and performed exactly the same procedure on the left, again noting that it was redo at L5 and S1 and virgin at L2, L3 and L4. When complete, all nerve roots probed completely free in their course. We could see then coursing along the medial aspect of the pedicle. We could see them exiting the neural foramen and then probing showed them to be completely free in their course of the neural foramina. We then drilled out the facets and performed posterior fusions from L2 to the sacrum. After the facets were drilled, we packed them with bone from the laminectomy, representing local bone graft harvest. With the facets packed, we then placed pledgets thrombin-soaked Gelfoam over the spinal canal. We irrigated with a liter of antibiotic-containing solution. We obtained meticulous hemostasis. We placed transverse connectors at the L2-L3 and the L5-S1 level to stabilize the rods at the end. We then began closure of the deep fascial layer with 0 Ethibond in [id number]-nx-selcu interrupted fashion, deep subQ with 0 Vicryl, superficial subQ with 2-0 Vicryl and the skin with stainless steel koko. We dressed it with Xeroform, sterile dressing, sponges and a bioclusive and the patient was being transported to the recovery room for closer neurovascular observation. Discharge to the floor when stable to continue prophylactic antibiotic and serial neurovascular exams until stable. Final blood loss was 200 mL. There were no obvious complications. There were no technical misadventures. The patient was physiologically stable throughout. Final blood loss [address] a medium Hemovac drain. <ELECTRONICALLY SIGNED> By: Denilson Chau MD 07/06/20 1456 [id number] [id number] Denilson Chau MD /nt
--- NOTE | 2020-07-06 15:54 | NUR ---
FAXED CLINICAL UPDATE TO [facility] SPOKE WITH INTAKE AND THEY WILL FOLLOW FOR HH AT DISCHARGE.
--- NOTE | 2020-07-06 18:23 | NUR ---
PT IS AOX4, BP DROPPED LOW. NURSE CALLED DOCTOR AND RECEIVED ORDER FOR BOLUS OF 250 CC X2. PT BP IS SLOWLY INCREASING, PT REPORTS SOMETIMES IT THIS HAPPENS AT HOME AFTER SHE TAKES METHADONE. STAFF FEEDS PT, APPETITE IS FAIR. FALL PRECAUTION IN PLACE. WILL CONTINUE TO MONITOR.
[2020-07-07 00:40] VITALS: BP 115/68
--- NOTE | 2020-07-07 03:05 | NUR ---
ASSESSED AT START OF SHIFT. BP MONITORED AND PROGRESSING. IV INTACT AND FLUIDS INFUISING. PT IS BLIND. PO FLUIDS GIVEN. ICE PACK ON SX SITE. PO PAIN PILL GIVEN. FALL PREC IN PLACE AND CALL LIGHT IN REACH WILL CONT TO MONITOR.
[2020-07-07 04:05] VITALS: BP 107/72
[2020-07-07 05:57] LABS: ABSOLUTE NEUTROPHILS 4.9 thou/uL (1.4-8.2); BASOPHILS 0.3 % (0.0-2.0); EOSINOPHILS 0.7 % (0.0-3.0); HEMATOCRIT 31.5 % (37.0-47.0); HEMOGLOBIN 10.2 gm/dL (12.0-15.0); LYMPHOCYTES 27.2 % (24.0-44.0); MCH 29.3 pg (26.0-34.0); MCHC 32.4 g/dL (28.0-37.0); MCV 90.5 fL (80.0-100.0); MONOCYTES 10.4 % (1.0-8.0); PLATELET COUNT 157 thou/uL (150-400); POLYS 61.4 % (36.0-66.0); RBC 3.49 mil/uL (4.20-5.00); RDW 14.1 % (10.5-14.5); WBC 8.1 thou/uL (4.0-11.0)
[2020-07-07 06:11] LABS: POTASSIUM 4.5 mmol/L (3.5-5.1)
[2020-07-07 07:09] VITALS: BP 107/68
--- NOTE | 2020-07-07 15:14 | NUR ---
CM DISCUSSED REHAB OPTIONS W/PT - ACUTE REHAB CONSULT FOR 5N.
[2020-07-07 15:57] VITALS: BP 102/54
--- NOTE | 2020-07-07 16:29 | NUR ---
PT CARE ASSUMED AT 0700. A&0x4. WILKINSON REMOVED. HEMOVAC REMOVED. WITH 50ML DRAINAGE. PAIN MANAGED WELL WITH PAIN MEDICATION ON BOARD. ICE BAG ON INCISION SITE. Q2 TURNS. IV PATENT WITH NO REDNESS OR EDEMA, FLUIDS INFUSING. VALIUM GIVEN PER PT REQUEST. BLIND BILATERAL. FEEDER. FALL PROTOCOL IN PLACE. CALL LIGHT IN REACH. WILL CONTINUE TO MONITOR.
[2020-07-07 19:55] VITALS: BP 87/49
[2020-07-08 04:34] VITALS: BP 112/61
--- NOTE | 2020-07-08 04:39 | NUR ---
PATIENT ALERT AND ORIENTED X4. C/O PAIN AND MEDICATED WITH OXYCODONE WITH GOOD RESULTS. ALSO GIVEN PRN PER REQUEST FOR ANXIETY AND NAUSEA. NO EMESIS. IVF INFUSING W/O COMPLICATION AFTER ICU NURSE (EMMANUEL) RESTARTED IV DUE TO INFILTRATION FROM AM SHIFT. INCONTINENT OF URINE AFTER REMOVAL OF WILKINSON, CLEAR, YELLOW URINE. RESTING QUIETLY. WILL MONITOR.
[2020-07-08 07:39] LABS: ABSOLUTE NEUTROPHILS 3.2 thou/uL (1.4-8.2); BASOPHILS 0.4 % (0.0-2.0); EOSINOPHILS 2.6 % (0.0-3.0); HEMATOCRIT 25.9 % (37.0-47.0); HEMOGLOBIN 8.6 gm/dL (12.0-15.0); LYMPHOCYTES 40.5 % (24.0-44.0); MCH 29.6 pg (26.0-34.0); MCV 89.7 fL (80.0-100.0); MONOCYTES 7.9 % (1.0-8.0); PLATELET COUNT 141 thou/uL (150-400); POLYS 48.6 % (36.0-66.0); RBC 2.89 mil/uL (4.20-5.00); RDW 13.7 % (10.5-14.5); WBC 6.6 thou/uL (4.0-11.0)
[2020-07-08 07:47] LABS: CALCIUM 6.8 mg/dL (8.5-10.1); CREATININE 0.5 mg/dL (0.6-1.0); POTASSIUM 3.2 mmol/L (3.5-5.1)
[2020-07-08 07:59] VITALS: BP 115/67
--- NOTE | 2020-07-08 10:40 | NUR ---
discussed during prime time via phone call, pt requested to go to rehab, there is already 5n consults, possible friday acute rehab.
--- NOTE | 2020-07-08 12:29 | NUR ---
PT IS A&OX4, VSS, BLIND, CALM PLEASANT MOOD, AMBULATES WITH 2 PERSON ASSIST WITH WALKER. PT DRESSING CHANGED BY THE NURSE. MEDICATIONS GIVE PRESCRIBED. FALL PRECAUTIONS IN PLACE, WILL CONTINUE TO MONITOR.
[2020-07-08 16:05] VITALS: BP 101/64
[2020-07-08 19:33] VITALS: BP 92/82
[2020-07-09 06:05] LABS: ABSOLUTE NEUTROPHILS 2.8 thou/uL (1.4-8.2); BASOPHILS 0.5 % (0.0-2.0); EOSINOPHILS 3.9 % (0.0-3.0); HEMATOCRIT 30.3 % (37.0-47.0); HEMOGLOBIN 9.8 gm/dL (12.0-15.0); LYMPHOCYTES 40.9 % (24.0-44.0); MCH 29.3 pg (26.0-34.0); MCHC 32.4 g/dL (28.0-37.0); MCV 90.4 fL (80.0-100.0); MONOCYTES 9.2 % (1.0-8.0); PLATELET COUNT 182 thou/uL (150-400); POLYS 45.5 % (36.0-66.0); RBC 3.35 mil/uL (4.20-5.00); RDW 14.1 % (10.5-14.5); WBC 6.2 thou/uL (4.0-11.0)
[2020-07-09 06:16] LABS: CALCIUM 8.5 mg/dL (8.5-10.1); CREATININE 0.8 mg/dL (0.6-1.0); POTASSIUM 3.8 mmol/L (3.5-5.1)
[2020-07-09 07:12] VITALS: BP 126/67
--- NOTE | 2020-07-09 08:37 | NUR ---
ASSUMED CARE OF PT AT SHIFT CHANGE, SHE IS A&0X4, LAST TIME SHE WALKED WAS PRIOR TO SURGERY AND WITH PT JUST TO THE CHAIR, BANDAGE ON BACK INTACT, NAUSEA TX PROPHYLACTICALLY PRIOR TO METHADONE. ENCOURAGED PT TO USE CALL LIGHT FOR ANY NEEDS. SEE SEPARATE INTERVENTIONS FOR ASSESSMENTS. PT WEARS 02 PRN HERE.
--- NOTE | 2020-07-09 10:20 | NUR ---
discussed during prime time, going to acute rehab today 5n.
[2020-07-09 16:34] VITALS: BP 93/58
[2020-07-09 19:28] VITALS: BP 93/59
[2020-07-10 03:40] VITALS: BP 105/64
--- NOTE | 2020-07-10 05:28 | NUR ---
PT LYING IN BED. VOIDING PER BEDPAN. PERCOCET PROVIDING PAIN RELIEF. NO NEEDS VOICED. CALL LIGHT WITHIIN REACH. FREQUENT OBSERVATION.
[2020-07-10 05:41] LABS: HEMOGLOBIN 8.8 gm/dL (12.0-15.0); MCH 29.2 pg (26.0-34.0); MCHC 32.4 g/dL (28.0-37.0); MCV 89.9 fL (80.0-100.0); PLATELET COUNT 201 thou/uL (150-400); RBC 3.01 mil/uL (4.20-5.00); RDW 13.7 % (10.5-14.5); WBC 5.2 thou/uL (4.0-11.0)
[2020-07-10 05:48] LABS: CALCIUM 8.3 mg/dL (8.5-10.1); CREATININE 0.9 mg/dL (0.6-1.0); POTASSIUM 4.3 mmol/L (3.5-5.1)
[2020-07-10 07:44] VITALS: BP 109/74
[2020-07-10 09:33] LABS: ANISOCYTOSIS SLIGHT
[2020-07-10] MEDS ORDERED: ROBAXIN 750 MG750 MG PO (10:08)
--- NOTE | 2020-07-10 10:54 | NUR ---
Assumed care of pt at 0700. Pt a&ox4. Pain controlled with prn pain meds. Dressing c/d/i. Pt will discharge to rehab. Fall precautions in place.
[2020-07-10 12:13] VITALS: BP 116/69
--- NOTE | 2020-07-10 14:38 | NUR ---
DISCHARGE NOTE: SW reviewed chart and spoke with nursing and attending physician. Pt is medically stable to discharge to [facility] today. SW confirmed plan with [facility] rehabilitation therapy aide. Discharge orders/summary written. Pt discharged to [facility]. No further SW needs identified at this time. Rehab CM to follow and assist as needed with discharge planning.
== END 2020-07-10 12:56 | DRG 460 ==
LOC: PRE 16:18 → 4S 07-05 06:12 → TBA 07-05 06:12 → PRE 07-05 10:30 → 4S 07-05 14:48
PROC: 0SG1071 Fusion of 2 or more Lumbar Vertebral Joints with Autologous Tissue Substitute, Posterior Approach, Posterior Column, Open Approach (ICD-10-PCS; principal; 2020-07-05)
PROC: 0SG30J1 Fusion of Lumbosacral Joint with Synthetic Substitute, Posterior Approach, Posterior Column, Open Approach (ICD-10-PCS; principal; 2020-07-05)
PROC: 01NB0ZZ Release Lumbar Nerve, Open Approach (ICD-10-PCS; principal; 2020-07-05)
PROC: 00NY0ZZ Release Lumbar Spinal Cord, Open Approach (ICD-10-PCS; principal; 2020-07-05)
DX: M43.16 Spondylolisthesis, lumbar region (principal); M48.062 Spinal stenosis, lumbar region with neurogenic claudication; F41.9 Anxiety disorder, unspecified; F43.10 Post-traumatic stress disorder, unspecified; Z96.612 Presence of left artificial shoulder joint; H54.8 Legal blindness, as defined in USA; F11.90 Opioid use, unspecified, uncomplicated; G89.29 Other chronic pain; M54.16 Radiculopathy, lumbar region; M48.061 Spinal stenosis, lumbar region without neurogenic claudication; F32.9 Major depressive disorder, single episode, unspecified; M41.86 Other forms of scoliosis, lumbar region; K21.9 Gastro-esophageal reflux disease without esophagitis; I10 Essential (primary) hypertension; Z79.899 Other long term (current) drug therapy; Z90.49 Acquired absence of other specified parts of digestive tract; Z87.891 Personal history of nicotine dependence
CPT/HCPCS: 10102; 50010; 50101; 50402; 50850; 51412; 51878; 56524; 56526; 56529; 58248; 58251; 5827; 58275; 62110; 62900; 70005

== ENCOUNTER → 2020-06-30 | Outpatient (CLI) | payer OTHER ==
[~2020-06-30] MED LIST changes: +DISKETS40 MG PO; +NEURONTIN 300300 M1 PO
== END ==
LOC: LAB 07:51
PROVIDERS: ATTEND Student in an Organized Health Care Education/Training Program
DX: Z01.812 Encounter for preprocedural laboratory examination (principal); Z20.828 Contact with and (suspected) exposure to other viral communicable diseases

== ENCOUNTER 2020-07-10 10:13 | Inpatient (IN) | payer OTHER ==
[~2020-07-10] VITALS: Ht 152.4 cm; Wt 72.6 kg
[~2020-07-10 10:13] MED LIST changes: -NEURONTIN 300300 M1 PO; +NEURONTIN 300M300 M2 PO; +ROBAXIN 750 MG750 MG PO
--- NOTE | 2020-07-10 13:03 | NUR ---
1248 PATIENT TRANSFERED TO ROOM 505. PATIENT ADMITTED TO REHAB. PATIENT IS ALERT AND ORIENTED X4, BUT CAN BE FORGETFUL. LUNGS ARE CLEAR. ABD IS SOFT WITH BSX4. PATIENT VOIDING ALEX COLOR URINE. UP WITH ASSIST OF 1 STAFF AND GAIT BELT AND WALKER. FALL AND SAFETY PROTOCOLS IN PLACE. C/O PAIN IN HER BACK. MEDICATED WITH PRN PAIN MEDS. PATIENT HAS IN IV ACCESS. CONSENTS SIGNED. PT/OT/ST JETER LATER TODAY OR IN THE A.M. CALL LIGHT IN REACH. LUNCH SERVED. PATIENT ASSISTED WITH SETUP. WILL CONTINUE TO MONITER.
[2020-07-10 13:10] VITALS: BP 113/80
--- NOTE | 2020-07-10 13:31 | NUR ---
cm visit with pt via phone call, intro to cm, dcp and team meeting. tori is able to make her needs known. she reported, live in house with boogie. 4 steps down to get out. have a while walking stick. going to have hh later they have already called. pcp abdifatah gallagher. [facility]. will cont following as needed for dc needs. she had question on how and where to get toilet raiser, and shower chair. education that will give her list of resources if needed for dc needs, and senior blue book.
[2020-07-10 19:10] VITALS: BP 117/63
--- NOTE | 2020-07-11 02:02 | NUR ---
TYLENOL AND ICEBAG TO FOREHEAD FOR STUBBORN HEADACHE 01/27 AT HS. BLIND, PLEASANT, USING BEDPAN TO VOID TONIGHT. APPRECIATES SNACKS TONIGHT.
[2020-07-11 06:03] LABS: HEMATOCRIT 29.4 % (37.0-47.0); HEMOGLOBIN 9.5 gm/dL (12.0-15.0); MCH 29.1 pg (26.0-34.0); MCHC 32.1 g/dL (28.0-37.0); MCV 90.6 fL (80.0-100.0); RBC 3.25 mil/uL (4.20-5.00); WBC 4.9 thou/uL (4.0-11.0)
[2020-07-11 06:12] LABS: CREATININE 0.9 mg/dL (0.6-1.0); POTASSIUM 4.5 mmol/L (3.5-5.1)
[2020-07-11 07:45] VITALS: BP 120/76
--- NOTE | 2020-07-11 13:25 | NUR ---
team meeting, reccommendation: allot of pain. she goes to methadone clinic outside the hospital. re team with dc on 07/20/2020.
--- NOTE | 2020-07-11 13:28 | NUR ---
Nutrition: RD received consult related to "food choices". Pt admit to rehab unit with lumbar scoliosis. Intake 75-100% of meals-able to feed self. Pt is legally blind. Assisted pt in ordering meals and obtained food preferences and encouraged to ask for assist with this in the future as well. Pt reports UBW in the 140s and 160# is innaccurate. Vitamin D level pending. Pt is low risk.
--- NOTE | 2020-07-11 16:11 | NUR ---
PT ALERT AND ORIENTED TIMES FOUR. VSS. C/O PAIN SCHEDULED AND PRN PAIN MEDICATIONS CONTROLLING PAIN FAIR. PT TOLERATES MEDS AND EATS SMALL POTIONS OF ALL MEALS. PT WORKED WELL WITH PT/OT. PT HERE TO THIS AFTERNOON. WILL CONTINUE TO MONITOR.
[2020-07-11 19:15] VITALS: BP 107/76
--- NOTE | 2020-07-12 01:07 | NUR ---
PT ALERT AND ORIENTED X 4. BACK DRESSING C/D/I. PT C/O PAIN IN HER BACK. PERCOCET GIVEN AT START OF SHIFT. PT REFUSED MIRALAX AT HS. BED ALARM ON FOR SAFETY. PT APPEARS TO BE SLEEPING ON HOURLY ROUNDS.
[2020-07-12 08:00] VITALS: BP 102/68
--- NOTE | 2020-07-12 09:32 | NUR ---
ASSUMED CARE AT 0700. PATIENT IS ALERT AND ORIENTED X4. PATIENT IS BLIND. PATIENT IS UP WITH ASSIST OF 1-2 STAFF AND GAIT BELT AND WALKER. BACK DRESSING CHANGED. INCISION IS CLEAN AND DRY. UP IN THE CHAIR FOR BREAKFAST. FALL AND SAFETY PROTOCOLS IN PLACE. C/O BACK PAIN. MEDICATED WITH PRN PAIN MED. CONTINUES TO PROGRESS TOWARDS D/C GOALS. WILL CONTINUE TO MONITER.
--- NOTE | 2020-07-12 14:44 | NUR ---
rx for f[facility] sent to [facility] and will be delivered 07/20 for dc. cm provided information to tori at bedside, cm cont to wear face mask and shield, give tori a senior blue book for her sig other to take home when she is dc for resources outside the hospital. thank you so much per tori.
--- NOTE | 2020-07-12 16:14 | NUR ---
FAXED REFERRAL TO [facility] SPOKE WITH [facility] IN INTAKE THEY RECEIVED REFERRAL AND WILL ACCEPT AT DISCHARGE 07/20.
[2020-07-12 19:36] VITALS: BP 114/76
--- NOTE | 2020-07-13 01:15 | NUR ---
PT ALERT AND ORIENTED X 4. UP TO BSC WITH ASSIST X 1. DRESSING TO BACK C/D/I. PT C/O PAIN IN HER BACK. OXYCODONE GIVEN ORDERED. BED ALARM ON FOR SAFETY. PT CHECKED ON HOURLY ROUNDS.
[2020-07-13 08:00] VITALS: BP 119/80
--- NOTE | 2020-07-13 14:36 | NUR ---
ASSUMED CARE OF PT AT 0700. PT IS A&OX4 AND VITAL SIGNS ARE STABLE. PT REPORTS PAIN TO BACK, MANAGED WTIH PO MEDICATIONS. METHADONE ADMINISTERED IN AM AND PT EXPRESSED THAT SHE WAS UPSET THAT PERCOCET NOT ADMINISTERED IN CONJUNCTION WITH METHODONE. NURSE EXPRESSED CONCERN THAT AT ORDERED DOSES OF MEDICATIONS MAY CAUSE SEDATION. PT EDUCATED ABOUT RISK OF TAKING MEDICATIONS TOGETHER. PAIN MONITORED AND MEDICATIONS SPACED OUT. PT EXPRESSED THAT SHE HAS NOT HAD BM IN OVER 1 WEEK DESPITE A DOCUMENTED BM ON THE . SUPPOSITORY ADMINISTERED PER PT REQUEST, NO RESULTS AT THIS TIME. FALL PRECAUTIONS IN PLACE AND NURSING WILL CONTINUE TO MONITOR.
[2020-07-13 19:18] VITALS: BP 103/61
--- NOTE | 2020-07-14 02:36 | NUR ---
ASSUMED PT CARE AROUND 1930. AXOX4. PT BLIND. PLACED CLOSER TO THE STATION AND FREQUENT OBSERVATION FOR ASST. PT ABLE TO USE CALL LIGHT TO CALL ADEQUATELY FOR HELP TOO. BACK DRESSING CDI. PAIN MANAGED PER MD ORDER. NO S/S ACUTE DISTERESS NOTED OR REPORTED AT THIS TIME. WILL CONT TO MONITOR FOR ANY CHANGES IN CONDITION.
[2020-07-14 08:00] VITALS: BP 112/71
--- NOTE | 2020-07-14 15:19 | NUR ---
ASSUMED CARE OF PT AT 0700. PT IS A&OX4 AND VITAL SIGNS ARE STABLE. PT REPORTS BACK PAIN, MANAGED WITH PO MEDICAITONS. PT PARTICIAPTED IN SCHEDULED THERAPIES. CALLS APPROPRIATELY FOR ASSISTANCE. SURGICAL SITE TO LOWER BACK, DRESSING C/D/I. BOWEL MOVEMENTS REVEIWED WITH PT. PT HAS DOCUMENTED BOWEL MOVEMENTS EVERY SHIFT SINCE ARRIVAL ON UNIT. FALLL PRECAUTIONS IN PLACE AND NURSING WILL CONTINUE TO MONITOR.
[2020-07-14 19:21] VITALS: BP 108/69
--- NOTE | 2020-07-15 04:41 | NUR ---
Patient is alert and oriented x4. Pleasant and speaks with a clear voice. She complains of no breathing difficulties, nausea and/or vomiting. Patient has been having very small to insignificant bowel movements since her last big BM on 07/12/20 and is worried not passing out enough. Education by the nurse reassures her if she is not feeling bloated, in pain, and has not eaten much since her last major BM then she should not worry yet. Education on more fluid intake and reassurance that facility staff are aware and moitoring too. Patient was compliant with night time medications which included stool softeners, and her requested pain medication. She remained in bed, resting peacefuly with eyes closed and visible non-struggling breaths.
--- NOTE | 2020-07-15 04:55 | NUR ---
In addition to earlier note, Patient is totally blind in both eyes (Could possibly make out some shapes as she put it in her own words), and needs total guidance when she uses her walker to the bathroom and back.
[2020-07-15 08:00] VITALS: BP 107/71
--- NOTE | 2020-07-15 10:33 | NUR ---
ASSUMED CARE AT 0700. PATIENT IS ALERT AND ORIENTED X4. PATIENT IS BLIND. PATIENT SALAS'S. OIL GAUGER ARE EQUAL. LUNGS ARE CLEAR AND DEMINISHED. ABD IS SOFT WITH BSX4. UP IN THE CHAIR FOR BREAKFAST. PATIENT DRESSING TO HER LOWER BACK IS DRY AND INTACT. DRESSING CHANGED. FALL AND SAFETY PROTOCOLS IN PLACE. C/O SEVERE PAIN IN HER LOWER BACK. MEDICATED WITH PRN PAIN MED AND SCED METHADONE. CONTINUES TO PROGRESS SLOWLY TOWARDS D/C GOALS. WILL CONTINUE TO MONITER.
[2020-07-15 19:24] VITALS: BP 113/55
[2020-07-16 08:12] VITALS: BP 114/74
--- NOTE | 2020-07-16 09:58 | NUR ---
ASSUMED CARE AT 0700. PATIENT IS ALERT AND ORIENTED X4. PATIENT IS BLIND. PATIENT SALAS'S, SHELL PLATER ARE EQUAL. LUNGS ARE CLEAR . UP ON SIDE OF THE BED FOR BREAKFAST. DRESSING TO PATIENTS BACK DRY AND INTACT. DRESSING CHANGED ACCORDING TO PROTOCOL. [place] BANDAID APPLIED. ERIN ARE DRY AND INTACT. FALL AND SAFETY PROTOCOLS IN PLACE. C/O BACK PAIN. MEDICATED WITH PRN PAIN MED AND SCED METHADONE. CONTINUES TO PROGRESS TOWARDS D/C GOALS. WILL CONTINUE TO MONITER.
[2020-07-16 19:13] VITALS: BP 105/66
--- NOTE | 2020-07-17 04:37 | NUR ---
Patient is alert and oriented x4, very pleasant with normal voice and no breathing distress or cough noted. She complied with her medications including pain and anxiety pills before going to bed. She did not complain of any nauses and vomiting and had a few more snacks before retiring for the day. She is legally blind on both sides, but always remembers to call for assistance when needed. She had no episodes of incontinence and remained in her room, resting, with eyes closed and visible respirations; no signs of distress noted.
[2020-07-17 05:36] LABS: HEMATOCRIT 26.4 % (37.0-47.0); HEMOGLOBIN 8.5 gm/dL (12.0-15.0); MCH 29.3 pg (26.0-34.0); MCHC 32.2 g/dL (28.0-37.0); MCV 90.9 fL (80.0-100.0); PLATELET COUNT 304 thou/uL (150-400); RDW 14.5 % (10.5-14.5); WBC 5.7 thou/uL (4.0-11.0)
[2020-07-17 05:47] LABS: CALCIUM 8.7 mg/dL (8.5-10.1); CREATININE 0.7 mg/dL (0.6-1.0); MAGNESIUM 2.1 mg/dL (1.8-2.4); POTASSIUM 4.5 mmol/L (3.5-5.1)
[2020-07-17 07:37] VITALS: BP 128/86
[2020-07-17 10:31] LABS: ABSOLUTE NEUTROPHILS 1.5 thou/uL (1.4-8.2); METAMYELOCYTES 1 %; MYELOCYTES 1 %
[2020-07-17 10:32] LABS: ANISOCYTOSIS 1+; OVALOCYTES 1+
--- NOTE | 2020-07-17 13:10 | NUR ---
ASSUMED CARE AT 0700. PT REPORTED AN UNEVENTFUL NIGHT AND SLEPT FAIRLY GOOD. COMPLAINED OF PAIN AND GIVEN PRN PERCOCET PRN AND SCHEDULED METHADONE FOR SURGERY SITE PAIN IN LOWER BACK. HAD SEVERAL LOOSE STOOL TODAY AND REFUSED STOOL REGIMEN. DRESSING TO BACK CHANGED AND SITE HAS ERIN AND APPROXIMATED WELL. NO DRAINAGE OR IMFLAMMATION NOTED. PARTICIPATING WITH THERAPY. PROGRESSING TOWARDS GOAL TOLERATED. CONT TO MONITOR.
[2020-07-17 19:36] VITALS: BP 81/44
[2020-07-17 23:00] VITALS: BP 125/73
--- NOTE | 2020-07-18 04:08 | NUR ---
assumed care approx 1900 evening 07/17. pt sleeping at change of shift and slept until approx 2230. pt up to bathroom with walker with 1 assist. pt took meds with water tolerating well. dressing to back intact. pt appears to be sleeping off and on throughout night. bed alarm on and call light in reach. will continue to monitor.
[2020-07-18 07:19] VITALS: BP 112/68
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
--- NOTE | 2020-07-18 11:17 | NUR ---
Nutrition followup: pt S/P lumbar multilevel laminectomy and fusion on 07/05. eating 75-100% of meals on regular diet. Vitamin D deficiency noted-supplement started. No new weight to assess. UBW reported in the 140s. Pt needs assist to order meals if desires as is legally blind. BM 07/17. Plan D/C 07/20. Low risk.
--- NOTE | 2020-07-18 12:32 | NUR ---
team meeting, reccommendation: dc 07/20 with [facility] (pt, ot, and nursing). sig other to assist with her medication.
--- NOTE | 2020-07-18 14:51 | NUR ---
ASSUMED CARE AT 0700. PT HAD AN UNEVENTFUL NIGHT AND SLEPT FAIRLY WELL. PAIN IS MANAGEABLE WITH SCHEDULED METHADONE AND PRN OXYCODONE. INCISION SITE WITH NO INFLAMMATION SEEN. DRESSING CHANGED. HAD A BOWEL MOVEMENT TODAY. PARTICIPATING WITH THERAPY. PROGRESSING WITH GOAL. PLAN FOR DISCHARGE ON 07/20 WITH HH PER TEAM CONFERENCE. CONT TO MONITOR.
[2020-07-18 19:45] VITALS: BP 115/71
--- NOTE | 2020-07-19 02:03 | NUR ---
Assumed care of patient this pm shift. Patient in good spirits, calm and cooperative. Patient states her pain is between 8-10. Pain is managed with prn oxy and daily methadone. Patient takes medications whole. Patient ambulates via walker. Patient is visually impaired but with guidance can ambulate to the bathroom. Patients assessment shows no signs of acute distress. Vital signs are stable. Patients breath sounds are clear, bowel sounds present, s1 s2 heard with auscultation. We will continue to monitor via hospital policy.
[2020-07-19 07:40] VITALS: BP 116/72
--- NOTE | 2020-07-19 10:28 | NUR ---
ASSUMED CARE AT 0700. PATIENT IS ALERT AND ORIENTED X4. PATIENT IS BLIND. PATIENT SALAS'S. REGIONAL TANKER TRUCK DRIVER ARE EQUAL. LUNGS ARE CLAER. ABD IS SOFT WITH BSX4. UP IN BED FOR BREAKFAST. BACK DRESSING CHANGED ERIN INTACT. FALL AND SAFETY PROTOCOLS IN PLACE. C/O BACK PAIN. MEDICATED WITH PRN PAIN MED. CONTINUES TO PROGRESS TOWARDS D/C GOALS. WILL CONTINUE TO MONITER.
[2020-07-19] MEDS ORDERED: ROBAXIN 750 MG750 MG PO (10:36)
[2020-07-19] MEDS ORDERED: MIRALAX17 GM PO (10:36)
[2020-07-19] MEDS ORDERED: PERCOCET 10-321 EACH PO (11:47)
[2020-07-19] MEDS ORDERED: VITAMIN D325 MC1 PO (11:49)
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
--- NOTE | 2020-07-19 15:13 | PLAN ---
[facility] [place] [address] REHAB UNIT PLAN OF CARE Name: SOILA RODRIGUEZ Room #: 505-P ADM IN M.R.#: [id number] Admission: 07/10/20 Attend Phys: Eder Wong MD Discharge: Date of : 56 Report #: [id number] THIS REPORT FOR: //name// CC: Eder Llamas DATE OF SERVICE: 07/12/2020 PROGRESS NOTE/OVERALL PLAN OF CARE SUBJECTIVE: The patient seen back today in followup. She is in no distress. Last recorded temperature 36.6, pulse 75, respirations 20, blood pressure 107/76. The patient is alert. She is blind premorbidly. She is pleasant, cooperative. Transfers are min assist, which is improved from max assist. She has ambulated up to 40 feet min assist with a front-wheeled walker. She has four stairs min assist. Lower body dressing is min assist. ASSESSMENT: A 60-year-old female with the following problem list: 1. Severe lumbar scoliosis, spondylolisthesis, lumbar radiculopathy with pain radiating down both legs, right worse than left, foraminal stenosis L2 through S1, status post lumbar fusion. 07/05/2020. 2. Acute on chronic back pain. 3. Hypertension with hypotension. 4. Gastroesophageal reflux disease. 5. Chronic methadone use. 6. Legally blind. PLAN: The overall plan of care is based on the preadmission screen, post-admission physician evaluation and information garnered from therapy assessments. 1. Estimated length of stay at this point is set for next , 07/20/2020. 2. Medical prognosis is reasonably good. 3. Anticipated interventions includes the interdisciplinary acute inpatient rehabilitation program. 4. Anticipated functional outcomes are for the patient to become modified independent with transfers, mobility, ADLs, so she can return back to the home setting. 5. Discharge destination would be back home with her significant other. 6. Expected therapy by discipline includes PT and OT per day each five days a week throughout the duration of the acute inpatient rehabilitation stay. [address] [address] REHAB UNIT PLAN OF CARE Name: SOILA RODRIGUEZ Room #: 505-P [facility] IN M.R.#: [id number] Admission: 07/10/20 Attend Phys: Eedr Wong MD Discharge: Date of : 56 Report #: [id number] ADDENDUM: The patient was wanting she might be able to go home earlier. I told it would depend in part on how she did with her ongoing therapies. <ELECTRONICALLY SIGNED> By: Eder Wong MD 07/19/20 1513 [id number] Eder Wong MD /PMT
[2020-07-19 19:18] VITALS: BP 114/79
--- NOTE | 2020-07-20 02:32 | NUR ---
assumed care approx 1900 evening 07/19. pt lying in bed with head of bed elevated at change of shift dozing off and on.pt up to bathroom to void with 1 assist standby. pt took hs meds with water tolerating well. pt appears to be sleeping off and on with hourly rounding. bed alarm on and call light in reach. will continue to monitor.
[2020-07-20 08:00] VITALS: BP 134/82
[2020-07-20 10:00] VITALS: BP 134/82
--- NOTE | 2020-07-20 10:15 | NUR ---
ASSUMED CARE AT 0700. PATIENT IS ALERT AND ORIENTEDX4. SALAS, ERIN ARE DRY AND INTACT. LUNGS ARE CLEAR. ABD IS SOFT WITH BSX4 . UP TO THE BR WITH ASSIST OF 1 STAFF AND GAIT BELT. PATIENT VOIDED AND HAD BM. UP ON SIDE OF THE BED FOR BREAKFAST. FALL AND SAFETY PROTOCOLS IN PLACE. C/O BACK PAIN. MEDICATED WITH PRN AND SCED PAIN MEDS . CONTINUES TO PROGRESS TOWARDS D/C GOALS. WILL CONTINUE TO MONITER.
--- NOTE | 2020-07-20 10:18 | NUR ---
D/C INSTRUCTIONS AND SCRIPTS GIVEN TO PATIENT AND SIGNIFICANT OTHER. PATIENT D/C'D TO HOME WITH ALL OF HER BELONGINGS AND WALKER. PATIENT LEFT FLOOR PER W/C WITH ALL OF HER BELONGINGS AND WALKER.
== END 2020-07-20 10:45 | disposition home health service (06) | DRG 551 ==
PROVIDERS: Nurse Practitioner; ADMIT Physical Medicine & Rehabilitation; ATTEND Physical Medicine & Rehabilitation
DX: M54.16 Radiculopathy, lumbar region (principal); G03.9 Meningitis, unspecified; M43.16 Spondylolisthesis, lumbar region; M41.86 Other forms of scoliosis, lumbar region; G89.29 Other chronic pain; M54.9 Dorsalgia, unspecified; I10 Essential (primary) hypertension; I95.9 Hypotension, unspecified; H54.8 Legal blindness, as defined in USA; F41.9 Anxiety disorder, unspecified; F32.9 Major depressive disorder, single episode, unspecified; K21.9 Gastro-esophageal reflux disease without esophagitis; Z96.612 Presence of left artificial shoulder joint; K59.00 Constipation, unspecified; D64.9 Anemia, unspecified; Z79.891 Long term (current) use of opiate analgesic; Z79.82 Long term (current) use of aspirin; Z79.899 Other long term (current) drug therapy; Z87.891 Personal history of nicotine dependence
CPT/HCPCS: 10112

== ENCOUNTER → 2020-07-31 | Outpatient (CLI) | payer OTHER ==
[~2020-07-31] MED LIST changes: +MIRALAX17 GM PO; +PERCOCET 10-321 EACH PO; +VITAMIN D325 MC1 PO
== END ==
LOC: RAD 10:25
DX: M47.817 Spondylosis without myelopathy or radiculopathy, lumbosacral region (principal); Z98.890 Other specified postprocedural states

== ENCOUNTER → 2020-10-09 | Outpatient (CLI) | payer OTHER | LOC: RAD 08:59 | PROVIDERS: ATTEND Physician Assistant | DX: M43.27 Fusion of spine, lumbosacral region (principal); M41.86 Other forms of scoliosis, lumbar region; Z98.890 Other specified postprocedural states ==

== ENCOUNTER → 2021-05-11 | Outpatient (CLI) | payer OTHER ==
[2021-05-11 18:26] LABS: ABSOLUTE NEUTROPHILS 1.7 thou/uL (1.4-8.2); BASOPHILS 0.3 % (0.0-2.0); EOSINOPHILS 1.9 % (0.0-3.0); HEMATOCRIT 38.9 % (37.0-47.0); HEMOGLOBIN 12.6 gm/dL (12.0-15.0); LYMPHOCYTES 59.3 % (24.0-44.0); MCHC 32.4 g/dL (28.0-37.0); MCV 89.6 fL (80.0-100.0); PLATELET COUNT 216 thou/uL (150-400); POLYS 30.5 % (36.0-66.0); RBC 4.35 mil/uL (4.20-5.00); RDW 13.9 % (10.5-14.5); WBC 5.4 thou/uL (4.0-11.0)
[2021-05-11 18:46] LABS: ALBUMIN 3.8 g/dL (3.4-5.0); ANION GAP 5 mmol/L (7-16); BUN 26 mg/dL (7-18); CALCIUM 9.4 mg/dL (8.5-10.1); CHLORIDE 107 mmol/L (98-107); CHOLESTEROL 187 mg/dL (<200); CO2 30 mmol/L (21-32); CREATININE 0.9 mg/dL (0.6-1.0); GLUCOSE 90 mg/dL (74-106); HDL CHOLESTEROL 95 mg/dL (>40); LDL CHOLESTEROL 80 mg/dL (<100); POTASSIUM 3.9 mmol/L (3.5-5.1); SGOT 21 U/L (15-37); SGPT 30 U/L (30-65); SODIUM 142 mmol/L (136-145); TOTAL BILIRUBIN 0.2 mg/dL (0.2-1.0); TOTAL PROTEIN 7.5 g/dL (6.4-8.2); TRIGLYCERIDE 62 mg/dL (<150); VLDL 12 mg/dL (<40)
[2021-05-12 04:06] LABS: GLYCOHEMOGLOBIN (HGB A1C) 5.5 % (4.8-5.6)
== END ==
LOC: BC 13:26 → LAB 13:26
PROVIDERS: ATTEND Family Medicine
DX: Z12.31 Encounter for screening mammogram for malignant neoplasm of breast (principal); I10 Essential (primary) hypertension; R73.9 Hyperglycemia, unspecified; E55.9 Vitamin D deficiency, unspecified; E53.8 Deficiency of other specified B group vitamins

== ENCOUNTER → 2021-07-04 | Outpatient (CLI) | payer OTHER | LOC: RAD 15:37 | PROVIDERS: ATTEND Family Medicine | DX: M43.17 Spondylolisthesis, lumbosacral region (principal); M51.37 Other intervertebral disc degeneration, lumbosacral region; M48.07 Spinal stenosis, lumbosacral region; M41.85 Other forms of scoliosis, thoracolumbar region; M25.552 Pain in left hip ==

== ENCOUNTER → 2021-12-17 | Outpatient (CLI) | payer OTHER | LOC: RAD 16:34 | PROVIDERS: ATTEND Family Medicine | DX: M19.011 Primary osteoarthritis, right shoulder (principal) ==